=== PATIENT | male | born 1995 | race Caucasian/White ===

== ENCOUNTER 2017-12-26 23:06 | Emergency (ER) | payer BC, OTHER ==
[2017-12-26 23:33] VITALS: BP 156/43; PULSE 97; TEMP 98.8; BMI 27.3
[2017-12-26] MEDS ORDERED: NAPROXEN 500 MG TABLET (FP) PO ONE (23:43)
[2017-12-26] MEDS ORDERED: NAPROXEN 250 MG TABLET (FP) ONE (23:46)
--- NOTE | 2017-12-26 23:48 | PDOC ---
History of Present Illness - History of Present Illness Initial Comments: This patient is a 22 year old male with no significant PMHx, who presents to the ER s/p right ankle injury 1.5 hours ago. Patient states that he was playing flag football when another player fell onto his right leg and he states that his knee turned inwards. He currently states that the back of his Achilles hurts only when he walks or puts pressure on it. He denies taking any pain medication. Denies any past surgical history or hospitalizations. <Janelle Petersen - Last Filed: 12/26/17 23:56> - General History Source: Patient Exam Limitations: No Limitations <Kevin Bueno - Last Filed: 12/27/17 00:27> - General Chief Complaint: Injury Stated Complaint: RT KNEE INJURY Time Seen by Provider: 12/26/17 23:09 Past History <Janelle Petersen - Last Filed: 12/26/17 23:56> - Past Medical History COPD: No - Suicide/Smoking/Psychosocial Hx Smoking History: Never smoked <Kevin Bueno - Last Filed: 12/27/17 00:27> - Past Medical History Allergies/Adverse Reactions: Allergies Allergy/AdvReac Type Severity Reaction Status Date / Time No Known Allergies Allergy Unverified 12/26/17 23:07 Home Medications: Ambulatory Orders Naproxen [Naprosyn -] 500 mg PO BID PRN #20 tablet 12/27/17 Review of Systems - Review of Systems Comments:: GENERAL/CONSTITUTIONAL: No fever or chills. No weakness. HEAD, EYES, EARS, NOSE AND THROAT: No change in vision. No ear pain or discharge. No sore throat. CARDIOVASCULAR: No chest pain or shortness of breath. RESPIRATORY: No cough, wheezing, or hemoptysis. GASTROINTESTINAL: No nausea, vomiting, diarrhea or constipation. GENITOURINARY: No dysuria, frequency, or change in urination. MUSCULOSKELETAL: +right achilles pain on ambulation. No neck or back pain. SKIN: No rash NEUROLOGIC: No headache, vertigo, loss of consciousness, or change in strength/ sensation. ENDOCRINE: No increased thirst. No abnormal weight change. HEMATOLOGIC/LYMPHATIC: No anemia, easy bleeding, or history of blood clots. ALLERGIC/IMMUNOLOGIC: No hives or skin allergy. <Janelle Petersen - Last Filed: 12/26/17 23:56> *Physical Exam - Vital Signs Last Vital Signs Temp Pulse Resp BP Pulse Ox 98.8 F 97 H 16 156/43 L 98 12/26/17 23:07 12/26/17 23:07 12/26/17 23:07 12/26/17 23:07 12/26/17 23:07 - Physical Exam Comments: GENERAL: Awake, alert, and fully oriented, in no acute distress HEAD: No signs of trauma EXTREMITIES: 2+ DP pulses. Negative [place] test. Sensation intact. FROM of right ankle, no edema noted, mild achilles tendon tenderness to palpation. No lateral medial malleolus, no navicular tenderness. No foot pain. NEUROLOGICAL: Cranial nerves II through XII grossly intact. Normal speech, normal gait SKIN: Warm, Dry, normal turgor, no rashes or lesions noted. <Janelle Petersen - Last Filed: 12/26/17 23:56> - Vital Signs Last Vital Signs Temp Pulse Resp BP Pulse Ox 98.8 F 97 H 16 156/43 L 98 12/26/17 23:07 12/26/17 23:07 12/26/17 23:07 12/26/17 23:07 12/26/17 23:07 <Kevin Bueno - Last Filed: 12/27/17 00:27> ED Treatment Course - Medications Given in the ED: ED Medications Discontinued Medications Generic Name Dose Route Start Last Admin Trade Name Freq PRN Reason Stop Dose Admin Naproxen 500 mg 12/26/17 23:43 12/26/17 23:47 Naprosyn - PO 12/26/17 23:44 500 mg ONCE ONE Administration <Janelle Petersen - Last Filed: 12/26/17 23:56> - RADIOLOGY Radiology Studies Ordered: Category Date Time Status ANKLE-RIGHT [RAD] Stat Radiology 12/26/17 23:43 Ordered <Kevin Bueno - Last Filed: 12/27/17 00:27> Medical Decision Making - Medical Decision Making 12/26/17 23:45 A portion of this note was documented by scribe services under my direction. I have reviewed the details of the note, within reason, and agree with the documentation with the following case summary and management plan written by me. Patient treated in the ED. Nursing notes are reviewed and incorporated into the medical decision-making. Vital signs reviewed. Vital Signs Temp Pulse Resp BP Pulse Ox 98.8 F 97 H 16 156/43 L 98 12/26/17 23:07 12/26/17 23:07 12/26/17 23:07 12/26/17 23:07 12/26/17 23:07 42-year-old male with no medical history presents with right ankle pain. Patient reports pain around the Achilles tendon. He was playing flag football when he was tackled. Initially thought he had right knee pain but ultimately was around his right Achilles and right ankle pain. Denies numbness or weakness. Reports pain on ambulation. Denies numbness or weakness. Patient is able to walk but with antalgic gait. [place] test was negative. I suspect the patient either has a sprained ankle or Achilles strain. We'll obtain an x-ray to rule out fracture. If the x-rays negative for fractures, weightbearing as tolerated. NSAIDs and elevation and ice and follow-up with orthopedics. 12/27/17 00:25 Ankle xray reviewed, pending official radiology read. No fractures appreciated. Pt feels comfortable going home. I discussed the physical exam findings, ancillary test results and final diagnoses with the patient. I answered all of the patient's questions. The patient was satisfied with the care received and felt comfortable with the discharge plan and treatment plan. The patient will call their primary care physician within 24 hours to arrange follow-up and will return to the Emergency Department with any new, persistant or worsening symptoms. 12/27/17 00:26 Pt given an DEAN wrap and crutches. <Kevin Bueno - Last Filed: 12/27/17 00:27> *DC/Admit/Observation/Transfer - Attestations Scribe Attestion: 12/27/17 00:03 Documentation prepared by Janelle Petersen, acting as durable medical equipment technician for Kevin Bueno MD. <Janelle Petersen - Last Filed: 12/26/17 23:56> - Discharge Dispostion Decision to Admit order: No <Kevin Bueno - Last Filed: 12/27/17 00:27> Diagnosis at time of Disposition: Ankle pain, right Qualifiers: Chronicity: acute Qualified Code(s): M25.571 - Pain in right ankle and joints of right foot - Discharge Dispostion Disposition: HOME Condition at time of disposition: Stable - Prescriptions Prescriptions: Naproxen [Naprosyn -] 500 mg PO BID PRN #20 tablet PRN Reason: Pain - Referrals Referrals: Prudencio Gutierres MD [Staff Physician] - - Patient Instructions Printed Discharge Instructions: DI for Achilles Tendinopathy, DI for Ankle Pain Additional Instructions: Use crutches as needed for assistance. Elevate the leg as much as you can. Take 500 mg naproxen every 12 hours as needed for pain. Ice as needed. If you have persistent ankle pain by next week, please make an appointment with an orthopedist.
== END 2017-12-27 00:31 | disposition home or self-care (01) ==
LOC: FER 23:06
DX: M25.571 Pain in right ankle and joints of right foot (principal)
CPT/HCPCS: 73610-TC-RT-FY; 99281-25